=== PATIENT | male | born 1985 | race Hispanic/Latino ===

== ENCOUNTER 2017-04-25 16:09 | Emergency (ER) | payer SELFPAY ==
[2017-04-25] MEDS ORDERED: Proparacaine 0.5% Opth 15 ML BOT ONE (16:16)
[2017-04-25] MEDS ORDERED: Fluorescein Opthalmic Strip ONE (16:16)
== END 2017-04-25 16:41 | disposition home or self-care (01) ==
LOC: SCSER 16:09
DX: T15.92XA Foreign body on external eye, part unspecified, left eye, initial encounter (principal); X58.XXXA Exposure to other specified factors, initial encounter
CPT/HCPCS: 65220